=== PATIENT | male | born 1975 | race Caucasian/White ===

== ENCOUNTER 2020-12-26 17:49 | Observation (INO) | payer SELFPAY ==
[2020-12-26 18:01] VITALS: BP 116/81; PULSE 112; RESP 16; TEMP 37.1; O2SAT 98; BMI 27.8
[2020-12-26 20:04] VITALS: BMI 27.1
[2020-12-26 20:19] VITALS: BP 115/71; PULSE 101; RESP 16; TEMP 36.7; O2SAT 98
[2020-12-26] MEDS: sodium chloride 0.9% 1,000 ML 999 ML IV ×2 (20:28→21:54)
[2020-12-26 20:30] LABS: Basophils # 0.1 10^3/uL (0.0-0.1); Basophils % 0.6 %; Eosinophils # 0.1 10^3/uL (0.0-0.8); Eosinophils % 0.8 %; Hematocrit 24.5 % (42.0-52.0); Hemoglobin 8.6 g/dL (11.7-16.6); Lymphocytes # 1.8 10^3/uL (0.8-4.8); Lymphocytes % 18.6 %; Mean Corpuscular HGB Conc 35.1 g/dL (30.0-36.0); Mean Corpuscular Volume 99.6 fL (80-94); Mean Platelet Volume 9.6 fL (7.4-10.4); Monocytes # 1.1 10^3/uL (0.2-0.9); Monocytes % 11.4 %; Neutrophils # 6.58 10^3/uL (1.8-7.7); Neutrophils % 67.9 %; Nucleated Red Blood Cells % 0 %; Platelet Count 302 10^3/cmm (130-400); Red Blood Count 2.46 10^6/uL (4.1-5.3); White Blood Count 9.7 10^3/uL (4.0-10.0)
[2020-12-26 20:44] LABS: Add Urine Microscopic? NO; Charge for UA Resulting for Rev
[2020-12-26 20:50] LABS: Bilirubin Urine Neg (Negative); Blood Urine Neg (Negative); Glucose Urine UA Norm (Normal); Ketones Urine Negative (Negative); Leukocyte Esterase Urine Negative (Negative); Nitrate Urine Negative (Negative); Protein Urine Neg (Negative); Urine Appearance Clear (CLEAR); Urine Color Yellow (Yellow); Urobilinogen Urine Norm (Negative); pH Urine 5 (5-7)
[2020-12-26 20:53] LABS: Alanine Aminotransferase 41 U/L (0-41); Albumin Level 4.4 g/dL (3.5-5.2); Alkaline Phosphatase 43 IU/L (40-130); Anion Gap 21.6 (5-19); Aspartate Amino Transferase 26 U/L (0-40); Blood Urea Nitrogen 36 mg/dL (6-20); Calcium 9.4 mg/dL (8.5-10.5); Carbon Dioxide 20 mmol/L (22-29); Chloride 87 mmol/L (98-107); Glomerular Filtration Rate 26.6 mL/min (90-130); Glucose 82 mg/dL (65-115); Lipase 42 U/L (13-60); Osmolality Calculated 267 mOsm/kg (285-295); Potassium 3.6 mmol/L (3.5-5.1); Sodium 125 mmol/L (136-145); Total Bilirubin 0.4 mg/dL (0.15-1.2); Total Protein 7.4 g/dL (6.6-8.7)
--- NOTE | 2020-12-26 21:25 | W.ED.RECABL ---
HPI - Recheck/Abnormal Lab/Rx General: Chief Complaint: Recheck/Abnormal Lab/Rx Stated Complaint: Fatigue, sent by lilliam martins of lab results Time Seen by Provider: 12/26/20 20:07 Source: patient Mode of arrival: ambulatory Limitations: no limitations History of Present Illness: HPI narrative: 45-year-old male states that last week to 2 weeks he is just been having general fatigue. He states that he is just felt tired and has been urinating quite a bit. Denies any vomiting does have chronic diarrhea. He states that he had outpatient blood drawn ordered by his PCP and was called today stating that he had an elevated creatinine along with anemia and recommended to be evaluated in the ER. He denies any pain currently. His only complaint really is the fatigue. Patient does have a history of high blood pressure and is on a lisinopril hydrochlorothiazide combined pill. Review of Systems Const: Denies: fever(s), chills, body aches or change in appetite Eyes: Denies: blurry vision or eye discomfort ENMT: Denies: throat pain or dental pain Card: Denies: chest pain Resp: Denies: dyspnea GI: Denies: abdominal pain, nausea, vomiting or diarrhea : Denies: dysuria Musc: Denies: neck pain or back pain Skin/Breast: Denies: rash Neuro: Reports: weakness in extremities; Denies: headache(s) Psych: Denies: depression Vic/Lymph: Denies: easy bruising All/Imm: Denies: urticaria Physical Exam Const: COMMON NORMALS: no acute distress, patient oriented x3 and healthy appearing HENMT: COMMON NORMALS: normocephalic and atraumatic HEAD & SCALP: normocephalic and atraumatic Eye: COMMON NORMALS: Equal, round and reactive pupils present and EOMs intact bilaterally PUPIL: Yes Equal, round and reactive pupils present Neck/C-Spine: COMMON NORMALS: full ROM and supple Chest: COMMONS NORMALS: normal inspection of the chest and normal palpation of entire chest wall Resp: COMMON NORMALS: normal respiratory effort, No retractions, No use of accessory muscles and clear to auscultation bilaterally AUSCULTATION: clear to auscultation bilaterally Cardio: COMMON NORMALS: regular rate, regular rhythm and No murmurs present (Cardio) RATE: regular rate RHYTHM: regular rhythm GI: COMMON NORMALS: Normal to inspection, nondistended, normoactive bowel sounds present, Soft to palpation, non-tender and no masses PALPATION: Yes Soft to palpation Extremity: COMMON NORMALS: normal to inspection and full ROM Neuro: COMMON NORMALS: patient oriented x3, moves all extremities and no focal motor deficits Psych: COMMON NORMALS: mental status grossly normal, Normal thought process present and cooperative THOUGHT PROCESS: Normal thought process present Skin: COMMON NORMALS: no rashes or lesions noted and no wounds GENERAL SKIN EXAM: no rashes or lesions noted Course Vital Signs: Vital signs: Vital Signs Temperature 98.1 F 12/26/20 20:19 Pulse Rate 98 12/26/20 23:18 Respiratory Rate 16 12/26/20 23:18 Blood Pressure 129/82 12/26/20 23:18 Pulse Oximetry 98 12/26/20 23:18 MDM - Recheck/Abnormal Lab/Rx MDM Narrative: Medical decision making narrative: Patient presents here with hyponatremia along with acute kidney injury. His sodium level here is 125 and creatinine is 2.6. His baseline creatinine from 2 years ago was 0.9. Patient is on a diuretic that could be causing some of the symptoms. He has a slight anemia that appears to be chronic in nature. I spoke to the hospitalist and I will admit for observation. His blood pressure here has been stable. Lab Data: Labs: Lab Results 12/26/20 12/26/20 12/26/20 Range/Units 20:21 20:21 20:34 WBC 9.7 (4.0-10.0) 10^3/ uL RBC 2.46 L (4.1-5.3) 10^6/u L Hgb 8.6 L (11.7-16.6) g/dL Hct 24.5 L (42.0-52.0) % MCV 99.6 H (80-94) fL MCH 35.0 H (28.0-34.0) pg MCHC 35.1 (30.0-36.0) g/dL RDW 12.0 L (12.1-15.1) % Plt Count 302 (130-400) 10^3/c mm MPV 9.6 (7.4-10.4) fL Neut % (Auto) 67.9 % Lymph % (Auto) 18.6 % Power % (Auto) 11.4 % Eos % (Auto) 0.8 % Baso % (Auto) 0.6 % Neut # (Auto) 6.58 (1.8-7.7) 10^3/u L Lymph # (Auto) 1.8 (0.8-4.8) 10^3/u L Power # (Auto) 1.1 H (0.2-0.9) 10^3/u L Eos # (Auto) 0.1 (0.0-0.8) 10^3/u L Baso # (Auto) 0.1 (0.0-0.1) 10^3/u L Nucleated RBC % (a uto) 0 % Nucleated RBCs # 0.0 /100WBC Sodium 125 L (136-145) mmol/L Potassium 3.6 (3.5-5.1) mmol/L Chloride 87 L (98-107) mmol/L Carbon Dioxide 20 L (22-29) mmol/L Anion Gap 21.6 H (5-19) BUN 36 H (6-20) mg/dL Creatinine 2.6 H (0.7-1.2) mg/dL GFR Calculation 26.6 L (90-130) mL/min Glucose 82 (65-115) mg/dL Calculated Osmolal ity 267 L (285-295) mOsm/k g Calcium 9.4 (8.5-10.5) mg/dL Total Bilirubin 0.4 (0.15-1.2) mg/dL AST 26 (0-40) U/L ALT 41 (0-41) U/L Alkaline Phosphata se 43 (40-130) IU/L Total Protein 7.4 (6.6-8.7) g/dL Albumin 4.4 (3.5-5.2) g/dL Globulin 3.0 (1.3-4.6) g/dL Lipase 42 (13-60) U/L Urine Color Yellow (Yellow) Urine Appearance Clear (CLEAR) Urine pH 5 (5-7) Ur Specific Gravit y 1.010 (1.005-1.030) Urine Protein Neg (Negative) Urine Glucose (UA) Norm (Normal) Urine Ketones Negative (Negative) Urine Blood Neg (Negative) Urine Nitrate Negative (Negative) Urine Bilirubin Neg (Negative) Urine Urobilinogen Norm (Negative) mg/dL Ur Leukocyte Elma ase Negative (Negative) Discharge Plan Discharge Patient Disposition: Placed in Observation Clinical Impression: Acute hyponatremia, Acute kidney injury Coding Level of Care Code 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
--- NOTE | 2020-12-26 21:26 | ECG_ITS ---
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 Measurements Intervals [place] Rate: 93 P: 48 WA: 183 QRS: 35 QRSD: 100 T: 48 QT: 365 QTc: 455 Interpretive Statements SINUS RHYTHM POSSIBLE RIGHT VENTRICULAR CONDUCTION DELAY [RSR (QR) IN V1/V2] Compared to ECG 11/20/2018 19:30:01 No significant changes Electronically Signed On 12-28-2020 0:29:31 CDT by Tish Gaitan M.D. [email or web address].Vacatia/store/[email or web address]/[id number]
[2020-12-26 21:32] VITALS: BP 119/84
[2020-12-26 23:18] VITALS: BP 129/82; PULSE 98; RESP 16; O2SAT 98
[2020-12-27] VITALS (8 sets, daily range): BP systolic 101–119; BP diastolic 65–79; PULSE 71–94; RESP 16–18; TEMP 36.8–37.2; O2SAT 95–98
[2020-12-27 00:17] LABS: Potassium, Radom Urine 23 mmol/L; Urine Creatinine 87 mg/dL (39-259); Urine Random Chloride 30 mmol/L; Urine Random Sodium 40 mmol/L
--- NOTE | 2020-12-27 03:03 | PM.HP ---
Providers/Chief Complaint Admitting Physician: Elvie Suárez MD Chief Complaint: Fatigue, sent by lilliam of lab results History of Present Illness Nikhil Abbasi is a 45 year old male who visited his PCP last week due to c/o increasing fatigue, lethargy and was found to have MARU with cr 2.6. Prior from 2019 was WNL. Patient has been on rx with Lisinopril-HCTZ for 2 years. No new medication except Wellbutrin added to his regimen 2 months ago. reports taking some supplements over the past 3-4 months to help with sleep, however uncertain as to the contents of this. Does not have bottle or picture to review contents at this time. Denies any recent increase in strenuous activity, denies any fever, rash, chills. No diarrhea, vomiting. Has not noticed drop in urine output. Labs notable for MARU, hyponatremia. UA without sediment. No h/o vasculitis. no h/o APKD Review of Systems General: Reports: 10 or more systems reviewed and unremarkable except in HPI and below Const: Denies: fever(s), chills or body aches Eyes: Denies: change in vision, blurry vision or photophobia ENMT: Reports: hoarseness; Denies: throat pain, enlarged tonsils, odynophagia or nasal congestion Card: Denies: chest pain, palpitations, irregular heart rhythm, edema, swelling of feet/ankles, lightheadedness, pre-syncope, dyspnea on exertion or orthopnea Resp: Denies: dyspnea, productive cough, non-productive cough, wheezing, stridor, pain on inspiration, change in phlegm color, hemoptysis or chest congestion GI: Denies: abdominal pain, nausea, vomiting, hematemesis, coffee ground emesis, dysphagia, heartburn, diarrhea, constipation, GI cramping, change in stool character, hematochezia or melena : Denies: flank pain, dysuria, urinary frequency, urinary urgency, urinary hesitancy or hematuria Musc: Denies: neck pain, back pain, extremity pain, joint swelling, joint warmth or deformity Neuro: Denies: headache(s), numbness in extremities, weakness in extremities, sensory changes, difficulty walking, frequent falls, dizziness, vertigo, behavioral changes, Slurred speech present or seizure-like activity Psych: Denies: anxiety, depression, suicidal ideation or homicidal ideation Endo: Denies: polyuria, polydipsia, tired all the time, cold intolerance or hot flashes Vic/Lymph: Denies: easy bruising or easy bleeding Medications/Allergies Home Medications Medication Instructions Recorded Confirmed Last Taken Type bupropion HCl 150 mg PO BID 12/26/20 12/26/20 12/26/20 History cetirizine 10 mg PO DAILY PRN 12/26/20 12/26/20 12/26/20 History fluoxetine 40 mg PO BID 12/26/20 12/26/20 12/26/20 History lisinopril-hydrochlorothiazide 1 tab PO DAILY 12/26/20 12/26/20 12/26/20 History omeprazole 20 mg PO DAILY 12/26/20 12/26/20 12/26/20 History Allergies Allergy/AdvReac Type Severity Reaction Status Date / Time No Known Allergies Allergy Unverified 12/26/20 20:42 PFSH Acute PFSH: Medical History (Updated 12/27/20 @ 03:20 by Elvie Suárez MD) Alcohol dependence Hypertension Nicotine dependence Vitals/I&O/Wt Last Vital Signs Temp 98.1 F 12/26/20 20:19 Pulse 90 12/27/20 01:55 Resp 16 12/27/20 01:55 BP 119/72 12/27/20 01:55 Pulse Ox 95 12/27/20 01:55 12/26/20 12/26/20 12/27/20 14:59 22:59 06:59 Intake Total 1000 / 1000 Balance 1000 / 1000 Weight last 48 hrs Weight 88.451 kg Weight 90.718 kg Physical Exam Narrative: EXAM NARRATIVE: General: No acute distress, AO x3 HEENT: PERRLA, pupils bilaterally equal and reactive, pallors not present Chest: Normal vesicular breath sounds, no added sounds, equal good air entry bilaterally CVS: S1-S2 regular, no murmurs, no tachycardia, no gallops, no rubs Abdomen: Soft, nontender, no organomegaly, bowel sounds present Neuro: No focal deficits, no facial deformity, AO x3, power 5/5 in all limbs Extremities: no edema,clubbing or cyanosis Data : 12/26/20 20:21 12/26/20 20:21 A&P Assessment and plan (1) Acute kidney injury: cr 2.6, last normal known from 2019 check urine lytes, urine cr UA bland US renal to evaluate for hydronephrosis, obstruction stop lisinopril-HCTZ HTN diagnosed at age 38, reports BP being well controlled at home, no h/o DM check hepatitis screen. HIV screen NS @75cc/hr , recheck cr with hydration strict I/O monitoring Status: Acute (2) Anemia: check fe panel, b12, folate , FOBT uncertain chronicity of CKD reports h/o daily alcohol consumption Status: Acute (3) Acute hyponatremia: no current neurological symptoms NS @ 75 cc/hr Status: Acute (4) Nicotine dependence: Status: Acute Qualifiers: Nicotine product type: cigarettes Substance use status: unspecified nicotine-induced disorder Qualified Code(s): F17.219 - Nicotine dependence, cigarettes, with unspecified nicotine-induced disorders (5) Alcohol dependence: monitor closely for signs of withdrawal Status: Acute Qualifiers: Substance use status: uncomplicated Qualified Code(s): F10.20 - Alcohol dependence, uncomplicated Attestations Medical Necessity Statement*: anticipate <2midnight stay for evaluation and management of MARU Coding Level of Care Code 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
[2020-12-27 03:49] LABS: Amphetamines Screen Urine Negative (Negative); Barbiturates Screen Urine Negative (Negative); Benzodiazepines Screen Urine Positive (Negative); Cocaine Screen Urine Negative (Negative); Opiate Screen Urine Negative (Negative); PCP Screen Urine Negative (Negative); THC Screen Urine Negative (Negative)
[2020-12-27 04:04] LABS: HIV 1 & 2 Antibody Non-Reactive (Non-Reactiv); HIV 1 & 2 Antigen Non-Reactive (Non-Reactiv)
[2020-12-27 04:07] LABS: Creatine Phosphokinase 182 U/L (39-308); Iron 53 ug/dL (59-158); Percent Saturation 17.2 % (20-50); Total Iron Binding Capacity 308 mcg/dl; Unsaturated Iron Binding 255 ug/dL (112-347)
[2020-12-27 04:21] LABS: Hepatitis A Antibody IgM Non-Reactive (Nonreactive); Hepatitis B Core AB, Total Non-Reactive (Nonreactive); Hepatitis B Surface AB 3.5 (11.5-1000); Hepatitis B Surface Antigen Non-Reactive (Nonreactive); Hepatitis C Virus Antibody Non-Reactive (Nonreactive); Vitamin B12 1652 pg/mL (232-1245)
[2020-12-27 04:25] LABS: Folate Level 8.4 ng/mL (4.5-32.2)
[2020-12-27] MEDS: sodium chloride 0.9% 1,000 ML 75 ML IV (05:36)
[2020-12-27] MEDS: fluoxetine 20 mg Capsule 40 MG PO (08:59)
[2020-12-27] MEDS: buPROPion SR (12 HR) 150 mg Tablet PO (08:59)
[2020-12-27] MEDS: nicotine 14 mg Patch 1 PATCH TRANSDERMA (09:00)
[2020-12-27] MEDS: pantoprazole DR 40 mg Tablet PO (09:00)
[2020-12-27 10:06] LABS: Alanine Aminotransferase 38 U/L (0-41); Albumin Level 4.3 g/dL (3.5-5.2); Alkaline Phosphatase 40 IU/L (40-130); Anion Gap 19.8 (5-19); Aspartate Amino Transferase 23 U/L (0-40); Blood Urea Nitrogen 29 mg/dL (6-20); Calcium 9.2 mg/dL (8.5-10.5); Carbon Dioxide 21 mmol/L (22-29); Chloride 95 mmol/L (98-107); Globulin 2.8 g/dL (1.3-4.6); Glucose 73 mg/dL (65-115); Osmolality Calculated 278 mOsm/kg (285-295); Potassium 3.8 mmol/L (3.5-5.1); Sodium 132 mmol/L (136-145); Total Bilirubin 0.5 mg/dL (0.15-1.2); Total Protein 7.1 g/dL (6.6-8.7)
--- NOTE | 2020-12-27 10:51 | PC.CHAP ---
Pastoral Care Encounter/Spiritual Assessment Type of Contact [] Declined passenger service agent visit [] Patient/Family/Request visit [] Outpatient visit [] Follow-up visit [] Physician referral [] Code/Alert [x] Routine visit [] Staff referral [] Actively dying [] Patient sleeping [] Family support [] [] Out of room [] Palliative care [] [] Receiving care in room [] Pre-surgical visit [] Trauma [] Long length of stay [] ICU visit [] Other: Relational/Emotional Strength [] Patient feels connected with others/family/visitors/staff [] Distress [] Loneliness/isolation [] Abandonment Spirituality of Patient [] Person of Antonina [] Attends Voodoo of their Antonina [] Believes in Prayer [] Reads Bible or Orthodoxy materials [] There are Spiritual issues to be addressed Purchasing Specialist Interventions [] Prayer [] Active listening [] Non-anxious presence [] Spiritual/emotional support [] Crisis/trauma care [] Spiritual counseling [] Bereavement support [] Provided bereavement packet [] Provided Bible/devotional materials [] Provided toy/stuffed animal, coloring book to patient or family member [] Provided Communion [] Anointing/[place] [] Salvation [] Completed spiritual assessment [] Other: Impact on Illness or Injury [] Angry [] Fearful [] Anxious [] Often cries [] Exhaustion [] Unable to work [] Unable to attend orthodox [] Unable to walk/stand [] Unable to read [] Unable to drive [] Unable to eat/drink [] Unable to sleep [] Unable to be with family [] Patient intubated [] Other: Summary He was busy reading a book ...Project which he never put down. Paused a couple times to look up at me over the book, but went right back to his reading. Seemed less than interested in me being there. Told him who I was and a bit about the hospital, but he still did not want to visit. So, I excused self. Time spent with patient 5 minutes at most.
--- NOTE | 2020-12-27 12:42 | P.PN_ITS ---
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
--- NOTE | 2020-12-27 16:32 | PM.DCS ---
Discharge Providers Date of Admission: 12/27/20 02:30 Date of Discharge: December 27, 2020 Attending Provider at Admission: Elvie Suárez MD Attending Provider at Discharge: Marlen Velez MD Diagnoses at Discharge Discharge Diagnosis (1) Acute kidney injury: Status: Acute (2) Anemia: Status: Acute (3) Acute hyponatremia: Status: Acute (4) Nicotine dependence: Status: Acute Qualifiers: Nicotine product type: cigarettes Substance use status: unspecified nicotine-induced disorder Qualified Code(s): F17.219 - Nicotine dependence, cigarettes, with unspecified nicotine-induced disorders (5) Alcohol dependence: Status: Acute Qualifiers: Substance use status: uncomplicated Qualified Code(s): F10.20 - Alcohol dependence, uncomplicated (6) GERD (gastroesophageal reflux disease): Status: Acute Reason for Visit Reason for Visit: Fatigue, sent by lilliam martins of lab results Hospital Course Hospital Course Mr. Abbasi is a 45yo man w/ HTN, GERD, Depression, Alcohol dependence, who was referred to the ED by his PCP, Dr. Yessy Rojas, on the night of 12/26/2020 after his labs revealed hyponatremia and an MARU. According to the patient, he began experiencing extreme fatigue starting Thursday, December 17, 2020. He went to his primary care physician, where he states that he was informed that his BP was lower than normal. He states that he was informed that he was dehydrated, and given the option of adding referred to a facility to get normal saline, or he could attempt to rehydrate himself by increasing his p.o. intake. He states that he did increase his p.o. intake, but did not feel better. He returned to his PCP on 12/20/2020, who had his labs redrawn on 12/22. The results were faxed to the PCP on 12/23, and the PCP saw it on 12/26/2020, and called him and sent him to the ED. Associated with his symptoms of extreme tiredness, includes dizziness, lightheadedness, with change in position and episodes of vomiting water . He denies headaches, visual changes, abdominal pain, diarrhea, constipation, melena, hematochezia, CP, palpitations, or S OB. He endorses chronic allergic rhinitis, and states that he constantly has rhinorrhea, but denies any nasal congestion. He denies a history of taking any NSAIDs, coffee consumption, but he does endorse drinking 1/5 of alcohol daily for approximately 20 to 25 years. He complains of bilateral numbness and tingling in his hands and feet. He denies any history of craving ice. In the ED, he was noted to be hyponatremic to 125, with a normocytic anemia of 8.6. He was started on IVF, and admitted. On admission, iron studies were ordered in addition to an acute hepatitis panel as well as HIV. His hepatitis and HIV studies were negative. His iron studies were concerning for iron deficiency anemia. An FOBT was ordered, but he had not had a BM by the time he was d/c'ed. the patient was concerned about his renal function, given that it was normal at the 11/2018. The state of his renal function was discussed at length, its current improvement, and the possible factors that contributed to his MARU were discussed. He was also informed that his anemia may have also contributed to his symptoms of fatigue dizziness, lightheadedness and that he would need an EGD and colonoscopy. 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 Given that his hyponatremia had improved to 132, and his renal function continue to improve, he was discharged to follow-up with his PCP, discharged to follow-up with a transcription specialist, and discharged to follow-up with general surgeon for an EGD and colonoscopy. On discharge, his lisinopril hydrochlorothiazide were discontinued, and he was started on amlodipine 5 mg daily. His Prozac was held also given his hyponatremia, and his omeprazole was increased to 40 mg twice daily before meals. Repeat BMP was ordered in 1 week for him. In addition to being discharged by the nurses, he was informed of these medication changes by the hospitalist. Discharge Data Data Completed and Pending: Completed Studies During Hospitalization Category Date Time Status US renal BI* [id number] Routine Ultrasound 12/27/20 23:44 Completed Pending at discharge Category Date Time Status Comprehensive Met abolic Panel AM LA BS Lab 12/28/20 04:00 Ordered Immunochemical Fe owen OCB Routine Lab 12/27/20 03:15 Uncollected Osmolality Urine Routine Lab 12/26/20 20:34 Received Thyroid Stimulati ng Hormone AM LABS Lab 12/28/20 04:00 Ordered Labs from last 24 hours 12/27/20 12/26/20 12/26/20 09:33 20:34 20:34 WBC RBC Hgb Hct MCV MCH MCHC RDW Plt Count MPV Neut % (Auto) Lymph % (Auto) [place] % (Auto) Eos % (Auto) Baso % (Auto) Neut # (Auto) Lymph # (Auto) [place] # (Auto) Eos # (Auto) Baso # (Auto) Nucleated RBC % (a uto) Nucleated RBCs # Sodium 132 L Potassium 3.8 Chloride 95 L Carbon Dioxide 21 L Anion Gap 19.8 H BUN 29 H Creatinine 2.1 H GFR Calculation 34.0 L Glucose 73 Calculated Osmolal ity 278 L Calcium 9.2 Iron TIBC % Saturation Unsat Iron Binding Total Bilirubin 0.5 AST 23 ALT 38 Alkaline Phosphata se 40 Creatine Kinase Total Protein 7.1 Albumin 4.3 Globulin 2.8 Lipase Vitamin B12 Folate Urine Color Urine Appearance Urine pH Ur Specific Gravit y Urine Protein Urine Glucose (UA) Urine Ketones Urine Blood Urine Nitrate Urine Bilirubin Urine Urobilinogen Ur Leukocyte Elma ase Urine Osmolality Pending Ur Random Sodium Ur Random Potassiu m Ur Random Chloride Urine Creatinine Urine Opiates Scre en Negative Ur Barbiturates Sc reen Negative Ur Phencyclidine S crn Negative Ur Amphetamines Sc reen Negative U Benzodiazepines Scrn Positive H Urine Cocaine Scre en Negative U Marijuana (THC) Screen Negative Hepatitis A IgM Ab Hep Bs Antigen Hep Bs Antibody Hep B Core Total A b Hepatitis C Antibo dy HIV 1&2 Ab & HIV 1 Ag HIV 1&2 Antibody 12/26/20 12/26/20 12/26/20 20:34 20:34 20:21 WBC RBC Hgb Hct MCV MCH MCHC RDW Plt Count MPV Neut % (Auto) Lymph % (Auto) [place] % (Auto) Eos % (Auto) Baso % (Auto) Neut # (Auto) Lymph # (Auto) [place] # (Auto) Eos # (Auto) Baso # (Auto) Nucleated RBC % (a uto) Nucleated RBCs # Sodium Potassium Chloride Carbon Dioxide Anion Gap BUN Creatinine GFR Calculation Glucose Calculated Osmolal ity Calcium Iron TIBC % Saturation Unsat Iron Binding Total Bilirubin AST ALT Alkaline Phosphata se Creatine Kinase Total Protein Albumin Globulin Lipase Vitamin B12 Folate Urine Color Yellow Urine Appearance Clear Urine pH 5 Ur Specific Gravit y 1.010 Urine Protein Neg Urine Glucose (UA) Norm Urine Ketones Negative Urine Blood Neg Urine Nitrate Negative Urine Bilirubin Neg Urine Urobilinogen Norm Ur Leukocyte Elma ase Negative Urine Osmolality Ur Random Sodium 40 Ur Random Potassiu m 23 Ur Random Chloride 30 Urine Creatinine 87 Urine Opiates Scre en Ur Barbiturates Sc reen Ur Phencyclidine S crn Ur Amphetamines Sc reen U Benzodiazepines Scrn Urine Cocaine Scre en U Marijuana (THC) Screen Hepatitis A IgM Ab Hep Bs Antigen Hep Bs Antibody Hep B Core Total A b Hepatitis C Antibo dy HIV 1&2 Ab & HIV 1 Ag Non-reactive HIV 1&2 Antibody Non-reactive 12/26/20 12/26/20 12/26/20 20:21 20:21 20:21 WBC RBC Hgb Hct MCV MCH MCHC RDW Plt Count MPV Neut % (Auto) Lymph % (Auto) [place] % (Auto) Eos % (Auto) Baso % (Auto) Neut # (Auto) Lymph # (Auto) [place] # (Auto) Eos # (Auto) Baso # (Auto) Nucleated RBC % (a uto) Nucleated RBCs # Sodium Potassium Chloride Carbon Dioxide Anion Gap BUN Creatinine GFR Calculation Glucose Calculated Osmolal ity Calcium Iron 53 L TIBC 308 % Saturation 17.2 L Unsat Iron Binding 255 Total Bilirubin AST ALT Alkaline Phosphata se Creatine Kinase 182 Total Protein Albumin Globulin Lipase Vitamin B12 1652 H Folate 8.4 Urine Color Urine Appearance Urine pH Ur Specific Gravit y Urine Protein Urine Glucose (UA) Urine Ketones Urine Blood Urine Nitrate Urine Bilirubin Urine Urobilinogen Ur Leukocyte Elma ase Urine Osmolality Ur Random Sodium Ur Random Potassiu m Ur Random Chloride Urine Creatinine Urine Opiates Scre en Ur Barbiturates Sc reen Ur Phencyclidine S crn Ur Amphetamines Sc reen U Benzodiazepines Scrn Urine Cocaine Scre en U Marijuana (THC) Screen Hepatitis A IgM Ab Non-reactive Hep Bs Antigen Non-reactive Hep Bs Antibody 3.5 L Hep B Core Total A b Non-reactive Hepatitis C Antibo dy Non-reactive HIV 1&2 Ab & HIV 1 Ag HIV 1&2 Antibody 12/26/20 12/26/20 20:21 20:21 WBC 9.7 RBC 2.46 L Hgb 8.6 L Hct 24.5 L MCV 99.6 H MCH 35.0 H MCHC 35.1 RDW 12.0 L Plt Count 302 MPV 9.6 Neut % (Auto) 67.9 Lymph % (Auto) 18.6 [place] % (Auto) 11.4 Eos % (Auto) 0.8 Baso % (Auto) 0.6 Neut # (Auto) 6.58 Lymph # (Auto) 1.8 [place] # (Auto) 1.1 H Eos # (Auto) 0.1 Baso # (Auto) 0.1 Nucleated RBC % (a uto) 0 Nucleated RBCs # 0.0 Sodium 125 L Potassium 3.6 Chloride 87 L Carbon Dioxide 20 L Anion Gap 21.6 H BUN 36 H Creatinine 2.6 H GFR Calculation 26.6 L Glucose 82 Calculated Osmolal ity 267 L Calcium 9.4 Iron TIBC % Saturation Unsat Iron Binding Total Bilirubin 0.4 AST 26 ALT 41 Alkaline Phosphata se 43 Creatine Kinase Total Protein 7.4 Albumin 4.4 Globulin 3.0 Lipase 42 Vitamin B12 Folate Urine Color Urine Appearance Urine pH Ur Specific Gravit y Urine Protein Urine Glucose (UA) Urine Ketones Urine Blood Urine Nitrate Urine Bilirubin Urine Urobilinogen Ur Leukocyte [place]ma ase Urine Osmolality Ur Random Sodium Ur Random Potassiu m Ur Random Chloride Urine Creatinine Urine Opiates Scre en Ur Barbiturates Sc reen Ur Phencyclidine S crn Ur Amphetamines Sc reen U Benzodiazepines Scrn Urine Cocaine Scre en U Marijuana (THC) Screen Hepatitis A IgM Ab Hep Bs Antigen Hep Bs Antibody Hep B Core Total A b Hepatitis C Antibo dy HIV 1&2 Ab & HIV 1 Ag HIV 1&2 Antibody Vitals: Last Vital Signs Temp 99.0 F 12/27/20 12:00 Pulse 93 12/27/20 12:00 Resp 18 12/27/20 12:00 BP 101/65 12/27/20 12:00 Pulse Ox 98 12/27/20 12:00 Discharge Plan Discharge Patient Disposition: Home Condition: Stable Prescriptions: New amlodipine 5 mg tablet 5 mg PO DAILY 30 Days Qty: 30 RF: 0 Continued bupropion HCl 150 mg tablet sustained-release 12 hr 150 mg PO BID RF: 0 cetirizine 10 mg Tablet 10 mg PO DAILY PRN (Reason: Allergy Symptoms) RF: 0 Changed omeprazole 20 mg Tablet,Delayed Release (Dr/Ec) 40 mg PO BIDAC Qty: 0 RF: 0 Held fluoxetine 40 mg capsule 40 mg PO BID RF: 0 Hold Instructions: Resume on 01/10/21. Do not resume until you see your PCP. Discontinued lisinopril-hydrochlorothiazide 20-25 mg tablet 1 tab PO DAILY RF: 0 Discharge Orders: Discharge Order (Routine); Ordered 12/27/20 Ordered By: Marlen Velez Other Ambulatory Orders: Basic Metabolic Panel (Routine) Timeframe: 1 Week Facility: [facility] - Location: Lab - Main Lab Ordered By: Marlen Velez Referrals: Shahab Denton MD [Referring] - (Follow up for Acute kidney injury sent referral ) Rachid Chahal MD [Physician] - 01/16/21 1:40 pm (Referral for EGD/colonoscopy for symptomatic Iron deficiency anemia) Yessy Rojas DO [Referring] - 01/03/21 3:20 pm (APPOINTMENT WITH POONAM ESPINO) Discharge Diet: Advance as tolerated Discharge Activity: Resume usual activity and Increase activity as tolerated Patient Instructions: Amlodipine (By mouth), Hyponatremia (GEN), Opioid Safety Activity Restrictions/Additional Instructions: I have pre-emptively increased your Omeprazole dose to 40mg twice daily, until you see the Surgeon for an Endoscopy/Colonoscopy, in the event that you have a Gastrointestinal bleed. Discharge Attestations Time Spent in Discharge Care*: greater than 30 min Quality Metrics Clinical Quality Measures During this hospital stay, did patient experience: None Coding Level of Care Code Acute Chg FW DC note Diagnoses Acute kidney injury N17.9 Anemia D64.9 Acute hyponatremia E87.1 Nicotine dependence F17.219 Nicotine product type: cigarettes Substance use status: unspecified nicotine-induced disorder Alcohol dependence F10.20 Substance use status: uncomplicated GERD (gastroesophageal reflux disease) K21.9
--- NOTE | 2020-12-27 23:44 | US_ITS ---
WS: [id number] ULTRASOUND RENAL TECHNIQUE: Ultrasound examination of both kidneys. CLINICAL INFORMATION: hydronephrosis, obstruction COMPARISON: None. FINDINGS: RIGHT: Right kidney is normal in size and appearance. Echogenicity: Normal. Cortical thickness: 1.7 cm; Normal. Hydronephrosis: None. Perinephric fluid: None. Right kidney measures: 11.4 cm x 5.7 cm x 5.8 cm. LEFT: Left kidney is normal in size and appearance. Echogenicity: Normal. Cortical thickness: 2.0 cm; Normal. Hydronephrosis: None. Perinephric fluid: None. Left kidney measures: 10.8 cm x 4.8 cm x 6.5 cm. Normal visualized aorta. Normal distended bladder. US/US renal BI* [id number] IMPRESSION: 1. Both kidneys are normal in appearance. No hydronephrosis. 2. Normal bladder.
--- NOTE | 2020-12-28 08:31 | PC.RESP ---
SMOKING CESSATION INFORMATION SENT TO PATIENT.
[2020-12-28 15:53] LABS: Osmolality Urine 306 mOsm/kg (50-1200)
== END 2020-12-27 16:55 | disposition home or self-care (01) ==
LOC: ER 23:29 → ER IP 12-27 02:30 → MEDSURG 12-27 06:22
PROVIDERS: Admitting Provider Student in an Organized Health Care Education/Training Program; Emergency Provider Emergency Medicine; Visit Provider Internal Medicine
DX: N17.9 Acute kidney failure, unspecified (principal); D64.9 Anemia, unspecified; E87.1 Hypo-osmolality and hyponatremia; F17.219 Nicotine dependence, cigarettes, with unspecified nicotine-induced disorders; F10.20 Alcohol dependence, uncomplicated; K21.9 Gastro-esophageal reflux disease without esophagitis; I10 Essential (primary) hypertension; F32.9 Major depressive disorder, single episode, unspecified; F17.210 Nicotine dependence, cigarettes, uncomplicated
CPT/HCPCS: 36415; 76770; 80053; 80306; 81003; 82436; 82550; 82570; 82607; 82746; 83540; 83550; 83690; 83935; 84133; 84300; 85025; 86705; 86706; 86709; 86803; 87340; 87806; 93005; 96360; 96361; 99285; G0378; J7030